=== PATIENT | male | born 1995 | race American Indian/Alaskan Native ===

== ENCOUNTER → 2018-11-01 | Outpatient (CLI) | payer BC, OTHER ==
[~2018-11-01] MED LIST: ANDRODERM PATCH; Allergy Relief10 M1 PO; Amoxicillin875 MG PO; BISA5EC PO; CLOB.05TC TOP; DEPO-TESTOSTERONE IM; DESM.01SO; DESM.01SO PO; DESMOPRESSIN; DOC250 PO; Flonase 0.05% N16 GM; GROWTH HORMONE SQ; HYDCOR10 PO; IBUP600 PO; IBUP800 PO; INS70/30PN SUBQ; LEVSOD137 PO; Mucinex600 MG PO; OMEP20ER PO; SERT100 PO; TESTTP TOP; TRAM50 PO; VENL75ER PO; [UNRECOGNIZED DRUG - OTHER]
== END | disposition home or self-care (01) ==
LOC: LAB SHORT 11:27 → LAB EV 11:27
DX: J02.9 Acute pharyngitis, unspecified (principal)
CPT/HCPCS: 87070; 87147

== ENCOUNTER 2020-01-27 08:32 | Day surgery (SDC) | payer BC, OTHER ==
[~2020-01-27] VITALS: Ht 200.7 cm; Wt 193.0 kg
[~2020-01-27 08:32] MED LIST changes: +ABILIFY MYCITE20 MG; +ACETAMIN-CODE12.5 M3 PO; +ALLERCLEAR10 MG PO; +AMIT25 PO; +ARIP20 PO; +CLOB.05TO; +CORTISONE60 GM TP; +Depo-Testos200 MG/ML IM; +Desmopressin A0.2 MG; +EMGALITY120 MG/1 M SQ; +HYDCOR10; +IBUP200; +LEVSOD25; +MELATONIN10 M7 PO; +Synthroid200 MCG PO; +TUMS500 MG PO
== END 2020-01-27 11:30 | disposition home or self-care (01) ==
LOC: ORSCSDS 08:32
PROVIDERS: Otolaryngology
PROC: 0CTPXZZ Resection of Tonsils, External Approach (ICD-10-PCS; principal; 2020-01-27 10:00)
DX: G47.33 Obstructive sleep apnea (adult) (pediatric) (principal); J35.01 Chronic tonsillitis; E66.01 Morbid (severe) obesity due to excess calories; Z68.42 Body mass index [BMI] 45.0-49.9, adult; Z79.899 Other long term (current) drug therapy
CPT/HCPCS: 82947; 88304; J0330; J1100; J2250; J2405; J2704; J3010; J7120

== ENCOUNTER 2020-02-20 01:50 | Emergency (ER) | payer BC, OTHER ==
[~2020-02-20] VITALS: Ht 200.7 cm; Wt 181.4 kg
[2020-02-20] MEDS ORDERED: Loratadine10 MG PO (02:08)
[2020-02-20] MEDS ORDERED: Synthroid200 MCG PO (02:08)
[2020-02-20] MEDS ORDERED: Vitamin D2000 UNIT PO (02:08)
[2020-02-20] MEDS ORDERED: HYDCOR10 PO ×2 (02:09→02:15)
[2020-02-20] MEDS ORDERED: Desmopressin A0.2 MG PO (02:10)
[2020-02-20] MEDS ORDERED: VENL75ER PO (02:11)
[2020-02-20] MEDS ORDERED: OMEP20ER PO (02:11)
[2020-02-20] MEDS ORDERED: AMIT25 PO (02:11)
[2020-02-20] MEDS ORDERED: ARIP10 PO (02:12)
[2020-02-20] MEDS ORDERED: MELATONIN5 M1 PO (02:12)
[2020-02-20] MEDS ORDERED: EMGALITY120 MG/1 M SC (02:13)
[2020-02-20] MEDS ORDERED: Depo-Testos200 MG/ML (02:14)
[2020-02-20] MEDS ORDERED: TUMS500 MG PO (02:15)
[2020-02-20] MEDS ORDERED: Advil200 M1 PO (02:16)
[2020-02-20] MEDS ORDERED: CODACE30 PO (02:18)
[2020-02-20] MEDS ORDERED: IBUP800 PO (02:18)
[2020-02-20 03:21] LABS: BASOPHILS ABSOLUTE AUTO 0.05 K/mm3 (0.00-0.23); BASOPHILS PERCENT AUTO 1 % (0-2); EOSINOPHILS ABSOLUTE AUTO 0.21 K/mm3 (0.00-0.68); EOSINOPHILS PERCENT AUTO 3 % (0-6); Hematocrit 45.8 % (37.0-53.0); Hemoglobin 15.3 g/dL (13.5-17.5); IMMATURE GRAN ABSOLUTE AUTO 0.03 K/mm3 (0.00-0.10); IMMATURE GRAN PERCENT AUTO 0 % (0-1); LYMPHOCYTES ABSOLUTE AUTO 2.06 K/mm3 (0.84-5.20); LYMPHOCYTES PERCENT AUTO 29 % (21-46); MONOCYTES ABSOLUTE AUTO 0.46 K/mm3 (0.16-1.47); MONOCYTES PERCENT AUTO 6 % (4-13); Mean Corpuscular HGB 28.7 pg (26.0-34.0); Mean Corpuscular HGB Conc 33.4 g/dL (31.5-36.5); Mean Corpuscular Volume 86 fL (80-100); NEUTROPHILS ABSOLUTE AUTO 4.43 K/mm3 (1.96-9.15); NEUTROPHILS PERCENT AUTO 61 % (41-73); RDW Coefficient Variation 13.2 % (11.7-14.2); RDW Standard Deviation 40.9 fL (35.1-46.3); Red Blood Cell Count 5.34 M/mm3 (4.30-5.90); White Blood Cell Count 7.24 K/mm3 (4.00-11.30)
[2020-02-20 03:28] LABS: Mean Platelet Volume 9.4 fL (9.1-12.4); Platelet Count 258 K/mm3 (150-400)
[2020-02-20 03:44] LABS: Alanine Aminotransfer (ALT/SGP 73 U/L (12-78); Albumin, Blood 3.9 g/dL (3.4-5.0); Albumin/Globulin Ratio 0.9 (0.8-1.8); Alk Phos 68 U/L (50-136); Anion Gap 5 mmol/L (6-16); Aspartate Aminotrans (AST/SGOT 50 U/L (12-37); Bilirubin, Total 0.6 mg/dL (0.1-1.0); Blood Urea Nitrogen 13 mg/dL (8-24); Bun/Creatinine Ratio 14.2 (12.0-20.0); CO2, Blood 28 mmol/L (21-32); Calcium, Blood 9.1 mg/dL (8.5-10.1); Chloride, Blood 106 mmol/L (98-108); Creatinine, Blood 0.92 mg/dL (0.60-1.20); Globulin, Blood 4.3 g/dL (2.2-4.0); Glomerular Filtration Rate >60 (60-); Glucose, Blood 116 mg/dL (70-99); Potassium, Blood 4.4 mmol/L (3.5-5.5); Sodium, Blood 139 mmol/L (136-145); Total Protein, Blood 8.2 g/dL (6.4-8.2)
== END 2020-02-20 06:52 | disposition home or self-care (01) ==
LOC: ER 01:50
PROVIDERS: Emergency Medicine
DX: R51 Headache (principal); E11.9 Type 2 diabetes mellitus without complications; F32.9 Major depressive disorder, single episode, unspecified; Z88.8 Allergy status to other drugs, medicaments and biological substances; Z79.899 Other long term (current) drug therapy
CPT/HCPCS: 36415; 70450; 80053; 85025; 96361; 96374; 96375; 99284-25; J0780; J1170; J1200; J1630; J1885; J2001; J7030

== ENCOUNTER 2020-08-22 21:01 | Emergency (ER) | payer OTHER ==
[~2020-08-22] VITALS: Ht 200.7 cm; Wt 186.0 kg
[~2020-08-22 21:01] MED LIST changes: +ARIP10 PO; +Advil200 M1 PO; +CODACE30 PO; +Depo-Testos200 MG/ML; +Desmopressin A0.2 MG PO; +EMGALITY120 MG/1 M SC; +Loratadine10 MG PO; +MELATONIN5 M1 PO; +Vitamin D2000 UNIT PO
[2020-08-22] MEDS ORDERED: METF500C PO (21:12)
[2020-08-22 21:53] LABS: BASOPHILS ABSOLUTE AUTO 0.06 K/mm3 (0.00-0.23); BASOPHILS PERCENT AUTO 1 % (0-2); EOSINOPHILS ABSOLUTE AUTO 0.34 K/mm3 (0.00-0.68); EOSINOPHILS PERCENT AUTO 4 % (0-6); Hematocrit 46.5 % (37.0-53.0); Hemoglobin 16.3 g/dL (13.5-17.5); IMMATURE GRAN ABSOLUTE AUTO 0.03 K/mm3 (0.00-0.10); IMMATURE GRAN PERCENT AUTO 0 % (0-1); LYMPHOCYTES ABSOLUTE AUTO 2.34 K/mm3 (0.84-5.20); LYMPHOCYTES PERCENT AUTO 28 % (21-46); MONOCYTES ABSOLUTE AUTO 0.56 K/mm3 (0.16-1.47); MONOCYTES PERCENT AUTO 7 % (4-13); Mean Corpuscular HGB 28.4 pg (26.0-34.0); Mean Corpuscular HGB Conc 35.1 g/dL (31.5-36.5); Mean Corpuscular Volume 81 fL (80-100); Mean Platelet Volume 10.2 fL (9.1-12.4); NEUTROPHILS ABSOLUTE AUTO 5.18 K/mm3 (1.96-9.15); NEUTROPHILS PERCENT AUTO 61 % (41-73); Platelet Count 225 K/mm3 (150-400); RDW Coefficient Variation 13.1 % (11.7-14.2); RDW Standard Deviation 38.5 fL (35.1-46.3); Red Blood Cell Count 5.74 M/mm3 (4.30-5.90); White Blood Cell Count 8.51 K/mm3 (4.00-11.30)
[2020-08-22 22:16] LABS: Source, Urine Clean Catch
[2020-08-22 22:18] LABS: Bilirubin, Urine Neg (Neg); Blood, Urine Neg (Neg); Glucose Qualitative, Urine 4+ (Neg); Ketones, Urine 1+ (Neg); Leukocyte Esterase, Urine Neg (Neg); Nitrite, Urine Pos (Neg); Protein, Urine 1+ (Neg); Specific Gravity, Urine 1.015 (1.003-1.022); Urobilinogen, Urine NORM (Normal)
[2020-08-22 22:22] LABS: Appearance, Urine Clear (Clear); Color, Urine Yellow (P-Yellow)
[2020-08-22 22:24] LABS: Bacteria Few /hpf; Red Blood Cells, Urine 0-2 /hpf (0-2); Squamous Epithelial Cells Few /hpf (Few); White Blood Cells, Urine 0-2 /hpf (0-5)
[2020-08-22 22:30] LABS: Alanine Aminotransfer (ALT/SGP 134 U/L (12-78); Albumin, Blood 3.8 g/dL (3.4-5.0); Alk Phos 102 U/L (50-136); Anion Gap 11 mmol/L (6-16); Aspartate Aminotrans (AST/SGOT 108 U/L (12-37); Bilirubin, Total 0.7 mg/dL (0.1-1.0); Blood Urea Nitrogen 14 mg/dL (8-24); CO2, Blood 21 mmol/L (21-32); Calcium, Blood 8.6 mg/dL (8.5-10.1); Chloride, Blood 99 mmol/L (98-108); Creatinine, Blood 0.93 mg/dL (0.60-1.20); Glomerular Filtration Rate >60 (60-); Glucose, Blood 410 mg/dL (70-99); Sodium, Blood 131 mmol/L (136-145); Total Protein, Blood 7.8 g/dL (6.4-8.2)
[2020-08-22 23:04] LABS: Base Excess Venous -4.7 mmol/L; Bicarbonate Venous 20.3 mmol/L (24.0-30.0); PCO2 Venous 43.1 mmHg (38-42); PO2 Venous 50.6 mmHg (38-42); pH Blood Venous 7.31 (7.34-7.37)
== END 2020-08-23 00:28 | disposition home or self-care (01) ==
LOC: ER 21:01
PROVIDERS: Student in an Organized Health Care Education/Training Program
DX: R10.12 Left upper quadrant pain (principal); R19.7 Diarrhea, unspecified; E11.9 Type 2 diabetes mellitus without complications; F32.9 Major depressive disorder, single episode, unspecified; Z79.899 Other long term (current) drug therapy; Z79.84 Long term (current) use of oral hypoglycemic drugs; Z88.8 Allergy status to other drugs, medicaments and biological substances
CPT/HCPCS: 36415; 80053; 81001; 82803; 85025; 87086; 99284

== ENCOUNTER 2021-11-21 20:37 | Emergency (ER) | payer OTHER ==
[~2021-11-21] VITALS: Ht 203.2 cm; Wt 172.4 kg
[~2021-11-21 20:37] MED LIST changes: +METF500C PO
[2021-11-21 21:28] LABS: BASOPHILS ABSOLUTE AUTO 0.08 K/mm3 (0.00-0.23); BASOPHILS PERCENT AUTO 1 % (0-2); EOSINOPHILS ABSOLUTE AUTO 0.42 K/mm3 (0.00-0.68); EOSINOPHILS PERCENT AUTO 5 % (0-6); Hematocrit 49.5 % (37.0-53.0); Hemoglobin 16.5 g/dL (13.5-17.5); IMMATURE GRAN ABSOLUTE AUTO 0.04 K/mm3 (0.00-0.10); IMMATURE GRAN PERCENT AUTO 0 % (0-1); LYMPHOCYTES ABSOLUTE AUTO 3.32 K/mm3 (0.84-5.20); LYMPHOCYTES PERCENT AUTO 36 % (21-46); MONOCYTES ABSOLUTE AUTO 0.48 K/mm3 (0.16-1.47); MONOCYTES PERCENT AUTO 5 % (4-13); Mean Corpuscular HGB 28.8 pg (26.0-34.0); Mean Corpuscular HGB Conc 33.3 g/dL (31.5-36.5); Mean Corpuscular Volume 86 fL (80-100); Mean Platelet Volume 9.8 fL (9.1-12.4); NEUTROPHILS ABSOLUTE AUTO 4.79 K/mm3 (1.96-9.15); NEUTROPHILS PERCENT AUTO 52 % (41-73); Platelet Count 303 K/mm3 (150-400); RDW Coefficient Variation 13.9 % (11.7-14.2); RDW Standard Deviation 44.2 fL (35.1-46.3); Red Blood Cell Count 5.73 M/mm3 (4.30-5.90); White Blood Cell Count 9.13 K/mm3 (4.00-11.30)
[2021-11-21 21:47] LABS: Alanine Aminotransfer (ALT/SGP 93 U/L (12-78); Albumin, Blood 4.2 g/dL (3.4-5.0); Albumin/Globulin Ratio 0.9 (0.8-1.8); Alk Phos 94 U/L (50-136); Anion Gap 7 mmol/L (6-16); Aspartate Aminotrans (AST/SGOT 57 U/L (12-37); Bilirubin, Total 0.5 mg/dL (0.1-1.0); Blood Urea Nitrogen 15 mg/dL (8-24); Bun/Creatinine Ratio 15.1 (12.0-20.0); CO2, Blood 23 mmol/L (21-32); Calcium, Blood 8.9 mg/dL (8.5-10.1); Chloride, Blood 108 mmol/L (98-108); Globulin, Blood 4.5 g/dL (2.2-4.0); Glomerular Filtration Rate >60 (60-); Glucose, Blood 128 mg/dL (70-99); Potassium, Blood 4.1 mmol/L (3.5-5.5); Sodium, Blood 138 mmol/L (136-145); Total Protein, Blood 8.7 g/dL (6.4-8.2)
[2021-11-21] MEDS ORDERED: Colace250 MG PO (23:12)
[2021-11-21] MEDS ORDERED: PREPARATION H C26 GM TOP (23:12)
== END 2021-11-21 23:28 | disposition home or self-care (01) ==
LOC: ER 20:37
PROVIDERS: Physician Assistant
DX: K64.4 Residual hemorrhoidal skin tags (principal); E11.9 Type 2 diabetes mellitus without complications; G43.909 Migraine, unspecified, not intractable, without status migrainosus; Z88.8 Allergy status to other drugs, medicaments and biological substances; Z79.899 Other long term (current) drug therapy; Z79.84 Long term (current) use of oral hypoglycemic drugs
CPT/HCPCS: 36415; 80053; 85025; 99283

== ENCOUNTER 2022-01-24 10:43 | Emergency (ER) | payer OTHER ==
[~2022-01-24] VITALS: Ht 200.7 cm; Wt 186.0 kg
[~2022-01-24 10:43] MED LIST changes: +Colace250 MG PO; +PREPARATION H C26 GM TOP
[2022-01-24] MEDS ORDERED: DESMOPRESSIN A0.2 M2 PO (12:42)
[2022-01-24] MEDS ORDERED: EUTHYROX150 MC1 PO (12:43)
[2022-01-24] MEDS ORDERED: TOPI50 PO ×2 (12:44→12:45)
[2022-01-24] MEDS ORDERED: [UNRECOGNIZED DRUG - CODE] PO (12:46)
[2022-01-24] MEDS ORDERED: PROPRANOLOL HC120 MG PO (12:47)
[2022-01-24] MEDS ORDERED: PROP120ER PO (12:47)
[2022-01-24] MEDS ORDERED: ZOLPIDEM TARTRA10 MG PO (12:48)
[2022-01-24] MEDS ORDERED: ATOR10 PO (12:48)
[2022-01-24] MEDS ORDERED: ACTOS30 MG PO (12:49)
[2022-01-24] MEDS ORDERED: IBU800 M1 PO (12:49)
[2022-01-24] MEDS ORDERED: RIZATRIPTAN10 M3 PO (12:50)
[2022-01-24] MEDS ORDERED: INSULIN GL100 UNIT/2 SC (12:51)
== END 2022-01-24 14:30 | disposition home or self-care (01) ==
LOC: ER 10:43
DX: R51.9 Headache, unspecified (principal); E23.2 Diabetes insipidus; Z98.890 Other specified postprocedural states
CPT/HCPCS: 70450; 96374; 96375; 99283-25; J0780; J1170; J1200; J1885; J7030

== ENCOUNTER 2022-02-12 20:50 | Emergency (ER) | payer OTHER ==
[~2022-02-12] VITALS: Ht 200.7 cm; Wt 195.0 kg
[~2022-02-12 20:50] MED LIST changes: +ACTOS30 MG PO; +ATOR10 PO; +DESMOPRESSIN A0.2 M2 PO; +EUTHYROX150 MC1 PO; +IBU800 M1 PO; +INSULIN GL100 UNIT/2 SC; +PROP120ER PO; +PROPRANOLOL HC120 MG PO; +RIZATRIPTAN10 M3 PO; +TOPI50 PO; +ZOLPIDEM TARTRA10 MG PO; +[UNRECOGNIZED DRUG - CODE] PO
== END 2022-02-12 22:15 | disposition home or self-care (01) ==
LOC: ER 20:50
DX: G43.909 Migraine, unspecified, not intractable, without status migrainosus (principal); E11.9 Type 2 diabetes mellitus without complications; Z79.4 Long term (current) use of insulin; Z79.899 Other long term (current) drug therapy; Z88.8 Allergy status to other drugs, medicaments and biological substances
CPT/HCPCS: 94640; 94664; J1200; J1790; J1885

== ENCOUNTER 2022-09-05 11:17 | Emergency (ER) | payer OTHER ==
[~2022-09-05] VITALS: Ht 200.7 cm; Wt 186.0 kg
[2022-09-05] MEDS ORDERED: ZEBUTAL 50-3251 EAC1 PO (12:44)
[2022-09-05] MEDS ORDERED: PROM25 PO (12:44)
== END 2022-09-05 12:55 | disposition home or self-care (01) ==
LOC: ER 11:17
DX: G43.909 Migraine, unspecified, not intractable, without status migrainosus (principal); B34.9 Viral infection, unspecified; E23.2 Diabetes insipidus
CPT/HCPCS: 99282

== ENCOUNTER 2023-03-12 17:10 | Inpatient (IN) | payer OTHER ==
[~2023-03-12] VITALS: Ht 200.7 cm; Wt 219.6 kg
[~2023-03-12 17:10] MED LIST changes: -DOCU100 PO; -ONDA4ODT MM
--- NOTE | 2023-03-12 22:31 | NUR ---
PT CHART REVIEWED FOR ADMIT
[2023-03-12 22:44] LABS: Bun/Creatinine Ratio 12.4 (12.0-20.0); Calcium, Blood 7.3 mg/dL (8.5-10.1); Creatinine, Blood 0.73 mg/dL (0.60-1.20); Potassium, Blood 3.9 mmol/L (3.5-5.5)
[2023-03-12 23:52] VITALS: BP 154/85
--- NOTE | 2023-03-13 00:38 | NUR ---
NEW ADMIT@ 2350 VSS, PATIENT ON RA SATS AT 97. IVF RUNNING AT 100/HR. PATIENT COMPLAIN OF A HEADACHE AND UNABLE TO URINATE. BLADDER SCAN SHOWS 430ML CALL OUT TO HOSP AWAITING CALL BACK. PATIENT REPORTS BEING DIZZY REPEAT VITALS ARE STABLE 133/58, SATS 99 ON RA, HR 68. RR 18. TEMP 97.9. CALL LIGHT IN REACH.
[2023-03-13 00:58] VITALS: BP 133/58
[2023-03-13 02:51] VITALS: BP 141/81
--- NOTE | 2023-03-13 04:16 | NUR ---
SHIFT SUMMARY PATIENT HAVING URINE RETENTION T/O SHIFT, STRAIGHT CATH PREFORMED WITH 675 OUT PUT. IVF ARE INFUSING. PATIENT DID REFUSE MEDICATION ORDER OF DR AMEE, OBI NOTIFIED. PATIENT ABLE TO GET BLADDER RELIEF AND FINALLY ABLE TO SLEEP. PLAN FOR AM LAB DRAW. AWAITING RESULTS OF CBC. PATIENT IS AOX4, CALLS APPROPRIATELY. BED IN LOW POSITION, TOLERATES PO INTAKE AND URINAL IN REACH. VSS, WILL REPORT TO DAY SHIFT NURSE.
[2023-03-13 05:18] LABS: Albumin, Blood 3.3 g/dL (3.4-5.0); Albumin/Globulin Ratio 0.9 (0.8-1.8); Bilirubin, Total 0.4 mg/dL (0.1-1.0); Bun/Creatinine Ratio 11.5 (12.0-20.0); Calcium, Blood 7.5 mg/dL (8.5-10.1); Creatinine, Blood 0.79 mg/dL (0.60-1.20); Globulin, Blood 3.5 g/dL (2.2-4.0); Potassium, Blood 3.6 mmol/L (3.5-5.5); Total Protein, Blood 6.8 g/dL (6.4-8.2)
[2023-03-13 07:42] VITALS: BP 142/75
[2023-03-13] MEDS ORDERED: DOCU100 PO (08:53)
[2023-03-13 12:57] LABS: Bun/Creatinine Ratio 12.2 (12.0-20.0); Calcium, Blood 8.7 mg/dL (8.5-10.1); Creatinine, Blood 0.82 mg/dL (0.60-1.20); Potassium, Blood 3.6 mmol/L (3.5-5.5)
[2023-03-13] MEDS ORDERED: ONDA4ODT MM (15:43)
--- NOTE | 2023-03-13 19:37 | NUR ---
DISCHARGE SUMMARY PATIENT WITH NO ACUTE EVENTS TODAY. HEADACHE CHRONIC, MEDICATED PER EMAR. PATIENT MEDICATION AND EDUCATION PACKET PRINTED AND REVIEWED WITH PATIENT. PATIENT SIGNED CONSENTS AND LEFT FACILITY VIA WHEELCHAIR WITH GERARD REYNA TO EXIT FOR PICKUP VIA PRIVATE VEHICLE AT 1700
== END 2023-03-13 17:42 | disposition home or self-care (01) | DRG 178 ==
LOC: ER 17:10 → MEDS 23:18
PROVIDERS: Family Medicine; Internal Medicine; ADMIT Internal Medicine
PROC: XW033E5 Introduction of Remdesivir Anti-infective into Peripheral Vein, Percutaneous Approach, New Technology Group 5 (ICD-10-PCS; principal; 2023-03-13)
DX: U07.1 COVID-19 (principal); E87.1 Hypo-osmolality and hyponatremia; Z68.42 Body mass index [BMI] 45.0-49.9, adult; R34 Anuria and oliguria; E83.51 Hypocalcemia; E11.9 Type 2 diabetes mellitus without complications; E66.01 Morbid (severe) obesity due to excess calories; F32.A Depression, unspecified; E03.9 Hypothyroidism, unspecified; G43.909 Migraine, unspecified, not intractable, without status migrainosus; Z79.899 Other long term (current) drug therapy; Z79.890 Hormone replacement therapy; Z79.4 Long term (current) use of insulin; Z86.39 Personal history of other endocrine, nutritional and metabolic disease
CPT/HCPCS: 36415; 36416; 71045; 80048; 80053; 82947; 83930; 83935; 84300; 85025; 96360; 96361; 99284-25; A9270; J1650; J1815; J7030

== ENCOUNTER → 2023-03-12 | Outpatient (CLI) | payer OTHER ==
[~2023-03-12] MED LIST changes: +DOCU100 PO; +ONDA4ODT MM; +PROM25 PO; -PROP120ER PO; +PROP60 PO; +ZEBUTAL 50-3251 EAC1 PO
[2023-03-12 16:32] LABS: BASOPHILS ABSOLUTE AUTO 0.02 K/mm3 (0.00-0.23); BASOPHILS PERCENT AUTO 0 % (0-2); EOSINOPHILS ABSOLUTE AUTO 0.01 K/mm3 (0.00-0.68); EOSINOPHILS PERCENT AUTO 0 % (0-6); Hematocrit 38.8 % (37.0-53.0); Hemoglobin 13.5 g/dL (13.5-17.5); IMMATURE GRAN ABSOLUTE AUTO 0.03 K/mm3 (0.00-0.10); IMMATURE GRAN PERCENT AUTO 1 % (0-1); LYMPHOCYTES ABSOLUTE AUTO 1.13 K/mm3 (0.84-5.20); LYMPHOCYTES PERCENT AUTO 23 % (21-46); MONOCYTES ABSOLUTE AUTO 0.32 K/mm3 (0.16-1.47); MONOCYTES PERCENT AUTO 7 % (4-13); Mean Corpuscular HGB 28.4 pg (26.0-34.0); Mean Corpuscular HGB Conc 34.8 g/dL (31.5-36.5); Mean Corpuscular Volume 82 fL (80-100); Mean Platelet Volume 9.6 fL (9.1-12.4); NEUTROPHILS PERCENT AUTO 69 % (41-73); Platelet Count 207 K/mm3 (150-400); RDW Coefficient Variation 13.7 % (11.7-14.2); RDW Standard Deviation 40.8 fL (35.1-46.3); Red Blood Cell Count 4.75 M/mm3 (4.30-5.90); White Blood Cell Count 4.91 K/mm3 (4.00-11.30)
[2023-03-12 16:41] LABS: Albumin, Blood 3.6 g/dL (3.4-5.0); Albumin/Globulin Ratio 0.9 (0.8-1.8); Bilirubin, Total 0.4 mg/dL (0.1-1.0); Bun/Creatinine Ratio 7.8 (12.0-20.0); Creatinine, Blood 1.03 mg/dL (0.60-1.20); Globulin, Blood 4.1 g/dL (2.2-4.0); Potassium, Blood 4.1 mmol/L (3.5-5.5); Total Protein, Blood 7.7 g/dL (6.4-8.2)
== END | disposition home or self-care (01) ==
LOC: LAB SHORT 16:28 → LAB 16:28
PROVIDERS: Physician Assistant Medical
DX: Z09 Encounter for follow-up examination after completed treatment for conditions other than malignant neoplasm (principal); Z86.03 Personal history of neoplasm of uncertain behavior
CPT/HCPCS: 80053; 85025

== ENCOUNTER 2023-04-22 22:22 | Emergency (ER) | payer OTHER ==
[~2023-04-22] VITALS: Ht 200.7 cm; Wt 201.8 kg
[~2023-04-22 22:22] MED LIST changes: +DOCU100 PO; +ONDA4ODT MM
[2023-04-22 23:13] VITALS: BP 132/97
[2023-04-23 01:24] LABS: BASOPHILS ABSOLUTE AUTO 0.09 K/mm3 (0.00-0.23); BASOPHILS PERCENT AUTO 1 % (0-2); EOSINOPHILS ABSOLUTE AUTO 0.34 K/mm3 (0.00-0.68); EOSINOPHILS PERCENT AUTO 3 % (0-6); Hematocrit 45.5 % (37.0-53.0); Hemoglobin 15.1 g/dL (13.5-17.5); IMMATURE GRAN ABSOLUTE AUTO 0.05 K/mm3 (0.00-0.10); IMMATURE GRAN PERCENT AUTO 1 % (0-1); LYMPHOCYTES ABSOLUTE AUTO 3.09 K/mm3 (0.84-5.20); LYMPHOCYTES PERCENT AUTO 31 % (21-46); MONOCYTES ABSOLUTE AUTO 0.61 K/mm3 (0.16-1.47); MONOCYTES PERCENT AUTO 6 % (4-13); Mean Corpuscular HGB 27.7 pg (26.0-34.0); Mean Corpuscular HGB Conc 33.2 g/dL (31.5-36.5); Mean Corpuscular Volume 84 fL (80-100); Mean Platelet Volume 9.1 fL (9.1-12.4); NEUTROPHILS ABSOLUTE AUTO 5.87 K/mm3 (1.96-9.15); NEUTROPHILS PERCENT AUTO 58 % (41-73); Platelet Count 323 K/mm3 (150-400); RDW Coefficient Variation 13.9 % (11.7-14.2); RDW Standard Deviation 42.3 fL (35.1-46.3); Red Blood Cell Count 5.45 M/mm3 (4.30-5.90); White Blood Cell Count 10.05 K/mm3 (4.00-11.30)
[2023-04-23 01:27] LABS: Source, Urine Straight Cath
[2023-04-23 01:36] LABS: Albumin, Blood 3.8 g/dL (3.4-5.0); Albumin/Globulin Ratio 0.9 (0.8-1.8); Bilirubin, Total 0.3 mg/dL (0.1-1.0); Bun/Creatinine Ratio 13.5 (12.0-20.0); Calcium, Blood 9.1 mg/dL (8.5-10.1); Creatinine, Blood 0.96 mg/dL (0.60-1.20); Globulin, Blood 4.4 g/dL (2.2-4.0); Potassium, Blood 4.4 mmol/L (3.5-5.5); Total Protein, Blood 8.2 g/dL (6.4-8.2)
[2023-04-23 01:38] LABS: Bilirubin, Urine Neg (Neg); Blood, Urine Neg (Neg); Glucose Qualitative, Urine Neg (Neg); Ketones, Urine Neg (Neg); Leukocyte Esterase, Urine Neg (Neg); Nitrite, Urine Neg (Neg); Protein, Urine Neg (Neg); Urobilinogen, Urine NORM (Normal)
[2023-04-23 01:53] LABS: Appearance, Urine Clear (Clear); Color, Urine Pale Yellow (P-Yellow)
== END 2023-04-23 02:39 | disposition home or self-care (01) ==
LOC: ER 22:22
PROVIDERS: Emergency Medicine
DX: R33.9 Retention of urine, unspecified (principal); E11.9 Type 2 diabetes mellitus without complications; Z79.899 Other long term (current) drug therapy; Z79.4 Long term (current) use of insulin; Z79.84 Long term (current) use of oral hypoglycemic drugs; R35.0 Frequency of micturition
CPT/HCPCS: 51798; 76857; 80053; 81003; 85025; 99283

== ENCOUNTER 2023-04-25 21:04 | Emergency (ER) | payer OTHER ==
[~2023-04-25] VITALS: Ht 200.7 cm; Wt 201.8 kg
[2023-04-25 22:17] VITALS: BP 152/111
[2023-04-25] MEDS ORDERED: TAMSULOSIN HCL0.4 M1 PO (23:43)
== END 2023-04-25 23:45 | disposition home or self-care (01) ==
LOC: ER 21:04
DX: R39.198 Other difficulties with micturition (principal); R30.0 Dysuria; E11.9 Type 2 diabetes mellitus without complications; Z79.84 Long term (current) use of oral hypoglycemic drugs; Z79.4 Long term (current) use of insulin
CPT/HCPCS: 51798; 99283-25

== ENCOUNTER 2023-11-30 15:42 | Emergency (ER) | payer OTHER ==
[~2023-11-30] VITALS: Ht 200.7 cm; Wt 195.0 kg
[~2023-11-30 15:42] MED LIST changes: +TAMSULOSIN HCL0.4 M1 PO
[2023-11-30 15:43] VITALS: BP 154/114
[2023-11-30] MEDS ORDERED: NS 1,000 ML IV SCH (15:50)
[2023-11-30] MEDS ORDERED: Ketorolac Tromethamine 15mg Vial IV ONE (15:50)
[2023-11-30 16:03] LABS: BASOPHILS ABSOLUTE AUTO 0.06 K/mm3 (0.00-0.23); BASOPHILS PERCENT AUTO 1 % (0-2); EOSINOPHILS ABSOLUTE AUTO 0.43 K/mm3 (0.00-0.68); EOSINOPHILS PERCENT AUTO 6 % (0-6); Hematocrit 42.2 % (37.0-53.0); IMMATURE GRAN ABSOLUTE AUTO 0.02 K/mm3 (0.00-0.10); IMMATURE GRAN PERCENT AUTO 0 % (0-1); LYMPHOCYTES ABSOLUTE AUTO 2.56 K/mm3 (0.84-5.20); LYMPHOCYTES PERCENT AUTO 33 % (21-46); MONOCYTES ABSOLUTE AUTO 0.41 K/mm3 (0.16-1.47); MONOCYTES PERCENT AUTO 5 % (4-13); Mean Corpuscular HGB 27.9 pg (26.0-34.0); Mean Corpuscular HGB Conc 33.2 g/dL (31.5-36.5); Mean Corpuscular Volume 84 fL (80-100); Mean Platelet Volume 9.8 fL (9.1-12.4); NEUTROPHILS ABSOLUTE AUTO 4.25 K/mm3 (1.96-9.15); NEUTROPHILS PERCENT AUTO 55 % (41-73); Platelet Count 249 K/mm3 (150-400); RDW Coefficient Variation 13.2 % (11.7-14.2); RDW Standard Deviation 40.2 fL (35.1-46.3); Red Blood Cell Count 5.01 M/mm3 (4.30-5.90); White Blood Cell Count 7.73 K/mm3 (4.00-11.30)
[2023-11-30 16:23] LABS: Albumin, Blood 3.8 g/dL (3.4-5.0); Bilirubin, Total 0.4 mg/dL (0.1-1.0); Bun/Creatinine Ratio 20.3 (12.0-20.0); Calcium, Blood 8.8 mg/dL (8.5-10.1); Creatinine, Blood 0.74 mg/dL (0.60-1.20); Globulin, Blood 3.9 g/dL (2.2-4.0); Potassium, Blood 4.1 mmol/L (3.5-5.5); Total Protein, Blood 7.7 g/dL (6.4-8.2)
[2023-11-30 16:51] LABS: Influenza A, PCR NEGATIVE (NEGATIVE); Influenza B, PCR NEGATIVE (NEGATIVE); Resp Syncytial Virus, PCR NEGATIVE (NEGATIVE); SARS-Cov-2 (COVID-19) PCR, MMC NEGATIVE (NEGATIVE)
[2023-11-30] MEDS ORDERED: Mag Hydrox/AL Hydrox/Simeth 30 ML UDC PO ONE (17:05)
[2023-11-30] MEDS ORDERED: Lidocaine 2% Viscous Soln 15 ML UDC PO ONE (17:05)
[2023-11-30] MEDS ORDERED: Atropine/Scopalam/Hyoscam/PB 5 ML UDC PO ONE (17:05)
== END 2023-11-30 17:53 | disposition home or self-care (01) ==
LOC: ER 15:42
PROVIDERS: Student in an Organized Health Care Education/Training Program
DX: R10.12 Left upper quadrant pain (principal); Z88.8 Allergy status to other drugs, medicaments and biological substances; Z79.899 Other long term (current) drug therapy; E11.9 Type 2 diabetes mellitus without complications; G43.909 Migraine, unspecified, not intractable, without status migrainosus
CPT/HCPCS: 0241U; 80053; 83690; 85025; 96361; 96374; 99284-25; A9270; J1885; J7030

== ENCOUNTER 2023-12-03 17:07 | Emergency (ER) | payer OTHER ==
[~2023-12-03] VITALS: Ht 200.7 cm; Wt 195.0 kg
[2023-12-03 18:04] LABS: BASOPHILS ABSOLUTE AUTO 0.07 K/mm3 (0.00-0.23); BASOPHILS PERCENT AUTO 1 % (0-2); EOSINOPHILS ABSOLUTE AUTO 0.32 K/mm3 (0.00-0.68); EOSINOPHILS PERCENT AUTO 5 % (0-6); Hematocrit 42.7 % (37.0-53.0); Hemoglobin 14.2 g/dL (13.5-17.5); IMMATURE GRAN ABSOLUTE AUTO 0.03 K/mm3 (0.00-0.10); IMMATURE GRAN PERCENT AUTO 0 % (0-1); LYMPHOCYTES ABSOLUTE AUTO 2.37 K/mm3 (0.84-5.20); LYMPHOCYTES PERCENT AUTO 34 % (21-46); MONOCYTES ABSOLUTE AUTO 0.36 K/mm3 (0.16-1.47); MONOCYTES PERCENT AUTO 5 % (4-13); Mean Corpuscular HGB Conc 33.3 g/dL (31.5-36.5); Mean Corpuscular Volume 84 fL (80-100); Mean Platelet Volume 9.9 fL (9.1-12.4); NEUTROPHILS ABSOLUTE AUTO 3.85 K/mm3 (1.96-9.15); NEUTROPHILS PERCENT AUTO 55 % (41-73); Platelet Count 266 K/mm3 (150-400); RDW Coefficient Variation 13.5 % (11.7-14.2); RDW Standard Deviation 41.4 fL (35.1-46.3); Red Blood Cell Count 5.07 M/mm3 (4.30-5.90)
[2023-12-03 18:33] LABS: Albumin, Blood 3.7 g/dL (3.4-5.0); Albumin/Globulin Ratio 0.9 (0.8-1.8); Bilirubin, Total 0.6 mg/dL (0.1-1.0); Bun/Creatinine Ratio 15.4 (12.0-20.0); Calcium, Blood 8.9 mg/dL (8.5-10.1); Creatinine, Blood 0.84 mg/dL (0.60-1.20); Globulin, Blood 4.1 g/dL (2.2-4.0); Potassium, Blood 3.9 mmol/L (3.5-5.5); Total Protein, Blood 7.8 g/dL (6.4-8.2)
[2023-12-03 20:15] VITALS: BP 151/86
== END 2023-12-03 21:42 | disposition home or self-care (01) ==
LOC: ER 17:07
PROVIDERS: Physician Assistant
DX: R10.12 Left upper quadrant pain (principal); K64.4 Residual hemorrhoidal skin tags; K40.90 Unilateral inguinal hernia, without obstruction or gangrene, not specified as recurrent; R73.9 Hyperglycemia, unspecified; R16.1 Splenomegaly, not elsewhere classified; E23.2 Diabetes insipidus; F32.A Depression, unspecified; E23.0 Hypopituitarism; Z88.8 Allergy status to other drugs, medicaments and biological substances; Z79.899 Other long term (current) drug therapy; Z79.52 Long term (current) use of systemic steroids; Z79.84 Long term (current) use of oral hypoglycemic drugs; Z79.890 Hormone replacement therapy; Z79.4 Long term (current) use of insulin
CPT/HCPCS: 80053; 85025; 99284

== ENCOUNTER 2024-02-11 20:50 | Emergency (ER) | payer MEDICARE, OTHER ==
[~2024-02-11] VITALS: Ht 200.7 cm; Wt 195.0 kg
[2024-02-11 20:59] VITALS: BP 152/81
[2024-02-11 21:57] LABS: BASOPHILS ABSOLUTE AUTO 0.09 K/mm3 (0.00-0.23); BASOPHILS PERCENT AUTO 1 % (0-2); EOSINOPHILS ABSOLUTE AUTO 0.29 K/mm3 (0.00-0.68); EOSINOPHILS PERCENT AUTO 2 % (0-6); Hematocrit 51.3 % (37.0-53.0); Hemoglobin 17.1 g/dL (13.5-17.5); IMMATURE GRAN ABSOLUTE AUTO 0.06 K/mm3 (0.00-0.10); IMMATURE GRAN PERCENT AUTO 1 % (0-1); LYMPHOCYTES ABSOLUTE AUTO 2.31 K/mm3 (0.84-5.20); LYMPHOCYTES PERCENT AUTO 18 % (21-46); MONOCYTES PERCENT AUTO 6 % (4-13); Mean Corpuscular HGB Conc 33.3 g/dL (31.5-36.5); Mean Corpuscular Volume 84 fL (80-100); NEUTROPHILS ABSOLUTE AUTO 9.42 K/mm3 (1.96-9.15); NEUTROPHILS PERCENT AUTO 73 % (41-73); Platelet Count 338 K/mm3 (150-400); RDW Standard Deviation 42.4 fL (35.1-46.3); White Blood Cell Count 12.97 K/mm3 (4.00-11.30)
[2024-02-11] MEDS ORDERED: Lactated Ringer's 1,000 ML IV SCH (22:00)
[2024-02-11] MEDS ORDERED: Lactated Ringer's 1,000 ML IV ONE (22:10)
[2024-02-11] MEDS ORDERED: Ketorolac Tromethamine 30mg Vial IV ONE (22:25)
[2024-02-11] MEDS ORDERED: Lidocaine 4% 1 Patch TOP ONE (22:35)
[2024-02-12] MEDS ORDERED: LIDO700A20 TOP (00:03)
[2024-02-12 00:10] LABS: Albumin/Globulin Ratio 0.8 (0.8-1.8); Bilirubin, Total 0.8 mg/dL (0.1-1.0); Bun/Creatinine Ratio 9.2 (12.0-20.0); Creatinine, Blood 0.87 mg/dL (0.60-1.20); Globulin, Blood 5.2 g/dL (2.2-4.0); Potassium, Blood 3.6 mmol/L (3.5-5.5); Total Protein, Blood 9.2 g/dL (6.4-8.2)
[2024-02-13] MEDS ORDERED: HYDCOR10 PO (11:39)
== END 2024-02-12 00:07 | disposition home or self-care (01) ==
LOC: ER 20:50
PROVIDERS: Physician Assistant
DX: L03.312 Cellulitis of back [any part except buttock and flank] (principal); Z88.8 Allergy status to other drugs, medicaments and biological substances; Z79.899 Other long term (current) drug therapy; Z79.84 Long term (current) use of oral hypoglycemic drugs; Z79.4 Long term (current) use of insulin; E11.9 Type 2 diabetes mellitus without complications; G43.909 Migraine, unspecified, not intractable, without status migrainosus
CPT/HCPCS: 36415; 80053; 85025; 99283; A9270; J1885; J7120

== ENCOUNTER 2024-02-13 11:23 | Emergency (ER) | payer MEDICARE, OTHER ==
[~2024-02-13] VITALS: Ht 200.7 cm; Wt 199.1 kg
[~2024-02-13 11:23] MED LIST changes: +LIDO700A20 TOP
[2024-02-13 11:37] VITALS: BP 180/68
[2024-02-13] MEDS ORDERED: HYDCOR10 PO ×2 (11:39)
[2024-02-14] MEDS ORDERED: CEPH500 PO (22:44)
== END 2024-02-13 11:40 | disposition home or self-care (01) ==
LOC: ER 11:23
DX: Z76.0 Encounter for issue of repeat prescription (principal); Z88.8 Allergy status to other drugs, medicaments and biological substances; Z79.899 Other long term (current) drug therapy; Z79.84 Long term (current) use of oral hypoglycemic drugs; Z79.4 Long term (current) use of insulin; G43.909 Migraine, unspecified, not intractable, without status migrainosus
CPT/HCPCS: 99281

== ENCOUNTER 2024-02-14 20:20 | Emergency (ER) | payer MEDICARE, OTHER ==
[~2024-02-14] VITALS: Ht 200.7 cm; Wt 192.8 kg
[2024-02-14 20:52] VITALS: BP 148/90
[2024-02-14] MEDS ORDERED: CEPH500 PO (22:44)
[2024-02-14] MEDS ORDERED: Cephalexin Monohydrate 500 MG Cap PO ONE (22:45)
== END 2024-02-14 23:00 | disposition home or self-care (01) ==
LOC: ER 20:20
DX: L03.312 Cellulitis of back [any part except buttock and flank] (principal); Z88.8 Allergy status to other drugs, medicaments and biological substances; Z79.899 Other long term (current) drug therapy; Z79.4 Long term (current) use of insulin; G43.909 Migraine, unspecified, not intractable, without status migrainosus
CPT/HCPCS: 99283; A9270

== ENCOUNTER 2025-03-08 15:15 | Emergency (ER) | payer MEDICARE, OTHER ==
[~2025-03-08] VITALS: Ht 200.7 cm; Wt 172.4 kg
[~2025-03-08 15:15] MED LIST changes: +CEPH500 PO
[2025-03-08 15:26] VITALS: BP 132/64
[2025-03-08 16:45] LABS: Source, Urine Clean Catch
[2025-03-08 17:03] LABS: Bilirubin, Urine Neg (Neg); Color, Urine Yellow (P-Yellow); Glucose Qualitative, Urine Neg (Neg); Ketones, Urine Neg (Neg); Leukocyte Esterase, Urine Neg (Neg); Protein, Urine 1+ (Neg); Specific Gravity, Urine 1.020 (1.003-1.022); Urobilinogen, Urine NORM (Normal)
[2025-03-09] MEDS ORDERED: CEPH500 PO (10:32)
== END 2025-03-08 17:10 | disposition home or self-care (01) ==
LOC: ER 15:15
PROVIDERS: Student in an Organized Health Care Education/Training Program
DX: E23.0 Hypopituitarism (principal); R33.9 Retention of urine, unspecified; Z79.4 Long term (current) use of insulin; Z79.84 Long term (current) use of oral hypoglycemic drugs; Z79.899 Other long term (current) drug therapy; Z88.8 Allergy status to other drugs, medicaments and biological substances
CPT/HCPCS: 51702; 51798; 99283-25

== ENCOUNTER 2025-03-09 09:21 | Emergency (ER) | payer MEDICARE, OTHER ==
[~2025-03-09] VITALS: Ht 200.7 cm; Wt 174.6 kg
[2025-03-09 09:34] VITALS: BP 132/83
[2025-03-09 10:12] LABS: Source, Urine Clean Catch
[2025-03-09 10:20] LABS: Color, Urine Yellow (P-Yellow); Glucose Qualitative, Urine Neg (Neg); Ketones, Urine Neg (Neg); Leukocyte Esterase, Urine 3+ (Neg); Protein, Urine 3+ (Neg); Specific Gravity, Urine 1.010 (1.003-1.022); Urobilinogen, Urine 1+ (Normal)
[2025-03-09 10:25] LABS: Bilirubin, Urine 1+ (Neg)
[2025-03-09 10:27] LABS: Red Blood Cells, Urine 50-100 /hpf (0-2)
[2025-03-09] MEDS ORDERED: CEPH500 PO (10:32)
== END 2025-03-09 10:45 | disposition home or self-care (01) ==
LOC: ER 09:21
PROVIDERS: Student in an Organized Health Care Education/Training Program
DX: Z46.6 Encounter for fitting and adjustment of urinary device (principal); N30.00 Acute cystitis without hematuria; E78.5 Hyperlipidemia, unspecified; E11.9 Type 2 diabetes mellitus without complications; K21.9 Gastro-esophageal reflux disease without esophagitis; I10 Essential (primary) hypertension; E23.2 Diabetes insipidus; Z88.8 Allergy status to other drugs, medicaments and biological substances; Z79.899 Other long term (current) drug therapy; Z79.84 Long term (current) use of oral hypoglycemic drugs; Z79.890 Hormone replacement therapy; Z79.4 Long term (current) use of insulin
CPT/HCPCS: 81001; 87086; 99283; A9270

== ENCOUNTER 2025-03-11 08:48 | Emergency (ER) | payer MEDICARE, OTHER ==
[~2025-03-11] VITALS: Ht 200.7 cm; Wt 172.4 kg
[2025-03-11 09:51] VITALS: BP 155/54
[2025-03-11 11:31] LABS: Source, Urine Clean Catch
[2025-03-11 11:59] LABS: Bilirubin, Urine Neg (Neg); Glucose Qualitative, Urine Neg (Neg); Ketones, Urine Neg (Neg); Leukocyte Esterase, Urine Neg (Neg); Protein, Urine 1+ (Neg); Specific Gravity, Urine 1.015 (1.003-1.022); Urobilinogen, Urine NORM (Normal)
[2025-03-11 12:00] LABS: Color, Urine Pale Yellow (P-Yellow)
== END 2025-03-11 11:53 | disposition home or self-care (01) ==
LOC: ER 08:48
PROVIDERS: Physician Assistant
DX: R33.9 Retention of urine, unspecified (principal); I10 Essential (primary) hypertension; E23.2 Diabetes insipidus; K21.9 Gastro-esophageal reflux disease without esophagitis; Z88.8 Allergy status to other drugs, medicaments and biological substances; Z79.84 Long term (current) use of oral hypoglycemic drugs; Z79.899 Other long term (current) drug therapy; Z79.4 Long term (current) use of insulin; Z59.89 Other problems related to housing and economic circumstances
CPT/HCPCS: 51702; 99283-25

== ENCOUNTER → 2025-03-15 | Outpatient (CLI) | payer MEDICARE, OTHER | LOC: LAB SHORT 15:01 → LAB 15:01 | DX: N39.0 Urinary tract infection, site not specified (principal) | CPT/HCPCS: 87086 ==

== ENCOUNTER 2025-04-23 15:36 | Emergency (ER) | payer MEDICARE, OTHER ==
[~2025-04-23] VITALS: Ht 200.7 cm; Wt 167.8 kg
[2025-04-23 15:44] VITALS: BP 139/93
[2025-04-23 16:15] LABS: BASOPHILS ABSOLUTE AUTO 0.09 K/mm3 (0.00-0.23); BASOPHILS PERCENT AUTO 1 % (0-2); EOSINOPHILS ABSOLUTE AUTO 0.18 K/mm3 (0.00-0.68); EOSINOPHILS PERCENT AUTO 2 % (0-6); Hematocrit 38.7 % (37.0-53.0); Hemoglobin 13.6 g/dL (13.5-17.5); IMMATURE GRAN ABSOLUTE AUTO 0.03 K/mm3 (0.00-0.10); IMMATURE GRAN PERCENT AUTO 0 % (0-1); LYMPHOCYTES ABSOLUTE AUTO 2.75 K/mm3 (0.84-5.20); LYMPHOCYTES PERCENT AUTO 31 % (21-46); MONOCYTES ABSOLUTE AUTO 0.58 K/mm3 (0.16-1.47); MONOCYTES PERCENT AUTO 7 % (4-13); Mean Corpuscular HGB Conc 35.1 g/dL (31.5-36.5); Mean Corpuscular Volume 82 fL (80-100); NEUTROPHILS ABSOLUTE AUTO 5.19 K/mm3 (1.96-9.15); NEUTROPHILS PERCENT AUTO 59 % (41-73); NRBC ABSOLUTE 0.00 K/mm3 (0.00-0.02); NRBC Auto 0.0 /100 WBC (0.0-0.2); Platelet Count 298 K/mm3 (150-400); RDW Coefficient Variation 13.9 % (11.7-14.2); RDW Standard Deviation 40.8 fL (35.1-46.3)
[2025-04-23 16:38] LABS: Alanine Aminotransfer (ALT/SGP 47.0 U/L (12-78); Albumin, Blood 3.9 g/dL (3.4-5.0); Albumin/Globulin Ratio 1.0 (0.8-1.8); Anion Gap 7.0 mmol/L (3-11); Aspartate Aminotrans (AST/SGOT 28.0 U/L (12-37); Bilirubin, Total 0.4 mg/dL (0.1-1.0); Blood Urea Nitrogen 17.0 mg/dL (8-24); CO2, Blood 24.0 mmol/L (21-32); Calcium, Blood 9.1 mg/dL (8.5-10.1); Chloride, Blood 102.0 mmol/L (98-108); Creatinine, Blood 0.99 mg/dL (0.60-1.20); Globulin, Blood 4.1 g/dL (2.2-4.0); Glucose, Blood 84.0 mg/dL (70-99); Potassium, Blood 3.8 mmol/L (3.5-5.5); Sodium, Blood 129.0 mmol/L (136-145); Total Protein, Blood 8.0 g/dL (6.4-8.2)
== END 2025-04-23 18:35 | disposition home or self-care (01) ==
LOC: ER 15:36
PROVIDERS: Physician Assistant
DX: E23.2 Diabetes insipidus (principal); E23.0 Hypopituitarism; K21.9 Gastro-esophageal reflux disease without esophagitis; I10 Essential (primary) hypertension; Z88.8 Allergy status to other drugs, medicaments and biological substances; Z79.899 Other long term (current) drug therapy; Z79.84 Long term (current) use of oral hypoglycemic drugs; Z79.4 Long term (current) use of insulin; Z79.2 Long term (current) use of antibiotics
CPT/HCPCS: 80053; 85025; 99283